=== PATIENT | male | born 1980 | race American Indian/Alaskan Native ===

== ENCOUNTER 2023-02-18 07:04 | Day surgery (SDC) | payer BC ==
[~2023-02-18 07:04] MED LIST: Lactated Ringers 1,000 ML IV SCH; Sodium Chloride 0.9% 10 ML Syringe FLUSH PRN; Sodium Chloride 0.9% 2.5 ML Syringe FLUSH PRN; Sodium Chloride 0.9% 20 ML SDV IV PRN
[2023-02-18] MEDS ORDERED: Propofol 200 MG/20 ML SDV ONE ×2 (09:32→09:49)
[2023-02-18] MEDS ORDERED: fentaNYL 100 MCG/2 ML SDV ONE (09:51)
[2023-02-18] MEDS ORDERED: Dexmedetomidine 200 MCG/2 ML SDV ONE (10:00)
[2023-02-18] MEDS ORDERED: Water For Injection, Sterile 20 ML ONE (10:00)
== END 2023-02-18 11:10 | disposition home or self-care (01) ==
LOC: MW.SDS 07:04
PROVIDERS: ATTEND Surgery
DX: K21.00 Gastro-esophageal reflux disease with esophagitis, without bleeding (principal); K29.50 Unspecified chronic gastritis without bleeding; K31.7 Polyp of stomach and duodenum; K44.9 Diaphragmatic hernia without obstruction or gangrene; I10 Essential (primary) hypertension; E78.00 Pure hypercholesterolemia, unspecified; J45.909 Unspecified asthma, uncomplicated; F41.9 Anxiety disorder, unspecified; Z79.899 Other long term (current) drug therapy; Z98.890 Other specified postprocedural states
CPT/HCPCS: 43239; J2704; J3010; J7120; J3490